=== PATIENT | male | born 1980 ===

== ENCOUNTER 2020-10-21 15:11 | Emergency (ER) | payer SELFPAY ==
[2020-10-21 15:25] VITALS: BP 117/78
--- NOTE | 2020-10-21 15:29 | Emergency Department Report ---
Blank Doc - Documentation Documentation: 40-year-old male that presents with SOB and right sided chest pain with radiat ion to right back. 1- This is a initial triage assessment/medical screening only. Full assessment and work-up will be completed once the patient is in proper hospital gown, ED bed and in a private room setting. This initial assessment/diagnostic orders/clinical plan/ treatment(s) is/are subject to change based on pt's health status, clinical progression and re-assessment by fellow clinical providers in the ED. Further treatment and workup at subsequent clinical providers discretion. Patient/guardians urged not to elope from ED as their condition may be serious if not clinically assessed and managed. 2-cardiac workup
--- NOTE | 2020-10-21 15:50 | XRay Report ---
CHEST 2 VIEWS INDICATION / CLINICAL INFORMATION: Chest Pain. FINDINGS: SUPPORT DEVICES: None. HEART / MEDIASTINUM: No significant abnormality. LUNGS / PLEURA: Small right pleural effusion. Streaky opacities within the right lower lung are prese nt and may represent atelectasis versus pneumonitis. The left lung is grossly clear. Signer Name: Bebo Banda MD Signed: 10/21/2020 3:45 PM Workstation Name: [id number]
[2020-10-21 15:51] LABS: Basophils % (Auto) 0.4 % (0.0-1.8); Eosinophils % (Auto) 0.6 % (0.0-4.3); Hematocrit 38.6 % (35.5-45.6); Hemoglobin 13.1 gm/dl (11.8-15.2); Lymphocytes # (Auto) 1.4 K/mm3 (1.2-5.4); Lymphocytes % (Auto) 17.8 % (13.4-35.0); Mean Corpuscular HGB Conc 34 % (32-34); Mean Corpuscular Volume 86 fl (84-94); Monocytes # (Auto) 0.5 K/mm3 (0.0-0.8); Platelet Count 296 K/mm3 (140-440); Red Cell Distribution Width 16.8 % (13.2-15.2)
[2020-10-21 16:08] LABS: INR 1.23 (0.87-1.13); Partial Thromboplastin Time 33.1 Sec. (24.2-36.6)
[2020-10-21 16:16] LABS: Alanine Aminotransferase 16 units/L (7-56); Albumin 4.2 g/dL (3.9-5); BUN/Creatinine Ratio 12; Blood Urea Nitrogen 14 mg/dL (9-20); Hemolysis Index 3
[2020-10-21] MEDS ORDERED: IBUPROFEN 600 MG TAB PO ONE (20:41)
[2020-10-21] MEDS ORDERED: levoFLOXacin 750 MG TAB PO ONE (20:41)
[2020-10-21] MEDS ORDERED: predniSONE 20 MG TAB PO ONE (20:41)
[2020-10-21] MEDS ORDERED: BENZONATATE 100 MG CAP PO ONE (20:41)
--- NOTE | 2020-10-21 20:47 | Emergency Department Report ---
- General Chief Complaint: Upper Respiratory Infection Stated Complaint: CHEST/BACK PAIN RIGHT SIDE Time Seen by Provider: 10/21/20 15:24 Source: patient Mode of arrival: Ambulatory Limitations: No Limitations - History of Present Illness Initial Comments: Patient is a 40-year-old -[place] male with a history of current pneumonia who presents to the ED with complaint of acute onset persistent right- sided chest wall pain, persistent dry cough, shortness of breath and nasal and sinus congestion for the last 4 days. Patient states that the pain in his right chest wall is worse with movement or deep inhalation and cough. Patient denies dizziness, syncope, fever, chills, sore throat, headache, traumatic injury or fall, hemoptysis, palpitations, abdominal pain, nausea and vomiting. MD Complaint: cough, nasal congestion, other (Right-sided chest wall pain; shortness of breath) -: Sudden, days(s) (4) Severity: severe Severity scale (0 -10): 7 Quality: sharp, aching Consistency: constant Improves With: nothing Worsens With: activity, deep breaths, changing head position Associated Symptoms: denies other symptoms, nasal congestion, cough, chest pain (Right sided chest pain), shortness of breath. denies: fever, chills, myalgias, diaphoresis, headache, rhinorrhea, sore throat, abdominal pain, nausea, vomiting, diarrhea, dysuria, rash, confusion, right sweats, weight loss, epistaxis, hoarseness, ear pain Treatments Prior to Arrival: none - Related Data Previous Rx's Medication Instructions Recorded Last Taken Type Albuterol Sulfate [Proventil Hfa] 1 - 2 puff IH Q6H PRN #1 hfa.aer.ad 10/21/20 Unknown Rx Benzonatate [Tessalon Perles] 100 mg PO Q8HR #30 capsule 10/21/20 Unknown Rx Ibuprofen [Motrin] 600 mg PO Q8H PRN #30 tablet 10/21/20 Unknown Rx levoFLOXacin [Levaquin] 750 mg PO QDAY #7 tablet 10/21/20 Unknown Rx methylPREDNISolone [Medrol 4MG 4 mg PO DAILY #21 tab.ds.pk 10/21/20 Unknown Rx DOSEPAK (21 tabs)] Allergies Allergy/AdvReac Type Severity Reaction Status Date / Time No Known Allergies Allergy Verified 10/21/20 21:52 ED Review of Systems ROS: Stated complaint: CHEST/BACK PAIN RIGHT SIDE Other details as noted in HPI Constitutional: denies: chills, fever Eyes: denies: eye pain, eye discharge, vision change ENT: congestion. denies: ear pain, throat pain Respiratory: cough, shortness of breath. denies: wheezing Cardiovascular: chest pain (Right lateral chest wall pain). denies: palpitations Endocrine: no symptoms reported Gastrointestinal: denies: abdominal pain, nausea, vomiting, diarrhea Genitourinary: denies: urgency, dysuria Musculoskeletal: denies: back pain, joint swelling, arthralgia Skin: denies: rash, lesions Neurological: denies: headache, weakness, paresthesias Psychiatric: denies: anxiety, depression Hematological/Lymphatic: denies: easy bleeding, easy bruising ED Past Medical Hx - Past Medical History Previous Medical History?: Yes Additional medical history: pneumonia - Surgical History Past Surgical History?: No - Medications Home Medications: Home Medications Medication Instructions Recorded Confirmed Last Taken Type Albuterol Sulfate [Proventil Hfa] 1 - 2 puff IH Q6H PRN #1 hfa.aer.ad 10/21/20 Unknown Rx Benzonatate [Tessalon Perles] 100 mg PO Q8HR #30 capsule 10/21/20 Unknown Rx Ibuprofen [Motrin] 600 mg PO Q8H PRN #30 tablet 10/21/20 Unknown Rx levoFLOXacin [Levaquin] 750 mg PO QDAY #7 tablet 10/21/20 Unknown Rx methylPREDNISolone [Medrol 4MG 4 mg PO DAILY #21 tab.ds.pk 10/21/20 Unknown Rx DOSEPAK (21 tabs)] ED Physical Exam - General Limitations: No Limitations General appearance: alert, in no apparent distress - Head Head exam: Present: atraumatic, normocephalic, normal inspection - Eye Eye exam: Present: normal appearance, PERRL, EOMI Pupils: Present: normal accommodation - ENT ENT exam: Present: normal exam, normal orophraynx, mucous membranes moist, TM's normal bilaterally, normal external ear exam - Neck Neck exam: Present: normal inspection, full ROM - Respiratory Respiratory exam: Present: normal lung sounds bilaterally, chest wall tenderness (Palpable reproducible right lateral chest wall tenderness). Absent: respiratory distress, wheezes, rales, rhonchi, stridor, accessory muscle use, decreased breath sounds, prolonged expiratory - Cardiovascular Cardiovascular Exam: Present: normal rhythm, tachycardia, normal heart sounds. Absent: systolic murmur, diastolic murmur, rubs, gallop - GI/Abdominal GI/Abdominal exam: Present: soft, normal bowel sounds. Absent: distended, tenderness, guarding - Extremities Exam Extremities exam: Present: normal inspection, full ROM, normal capillary refill - Back Exam Back exam: Present: normal inspection, full ROM. Absent: tenderness, CVA t enderness (R), CVA tenderness (L), muscle spasm, paraspinal tenderness, vertebral tenderness - Neurological Exam Neurological exam: Present: alert, oriented X3, CN II-XII intact, normal gait, reflexes normal - Psychiatric Psychiatric exam: Present: normal affect, normal mood - Skin Skin exam: Present: warm, dry, intact, normal color. Absent: rash ED Course Vital Signs 10/21/20 10/21/20 15:23 22:30 Temperature 98.4 F Pulse Rate 104 H Respiratory 20 18 Rate Blood Pressure 117/78 [Right] O2 Sat by Pulse 99 98 Oximetry ED Medical Decision Making - Lab Data Result diagrams: 10/21/20 15:29 10/21/20 15:29 - Radiology Data Radiology results: report reviewed, [place] [address] XRay Report Signed Patient: SONALI JORDAN MR#: [id number] : 1980 Acct:[id number] Age/Sex: 40 / M ADM Date: 10/21/20 Loc: ED Attending Dr: Ordering Physician: TRAY GUERRA NP Date of Service: 10/21/20 Procedure(s): XR chest routine 2V Accession Number(s): [id number] cc: TRAY GUERRA NP Fluoro Time In Minutes: CHEST 2 VIEWS INDICATION / CLINICAL INFORMATION: Chest Pain. FINDINGS: SUPPORT DEVICES: None. HEART / MEDIASTINUM: No significant abnormality. LUNGS / PLEURA: Small right pleural effusion. Streaky opacities within the right lower lung are present and may represent atelectasis versus pneumonitis. The left lung is grossly clear. Signer Name: Bebo Banda MD Signed: 10/21/2020 3:45 PM Workstation Name: [id number] Transcribed By: Dictated By: Bebo Banda MD Electronically Authenticated By: Bebo Banda MD Signed Date/Time: 10/21/201544 DD/ 44 TD/TT: - Medical Decision Making This is a 40-year-old -[place] male with a history of current pneumonia who presents to the ED with complaint of acute onset persistent right-sided chest wall pain, persistent dry cough, shortness of breath and nasal and sinus congestion for the last 4 days. Patient states that the pain in his right chest wall is worse with movement or deep inhalation and cough. In the ED, patient is alert and oriented x3 and is not in any distress but appears to be in pain, slightly tachycardic and afebrile. Lab test results were reviewed and are all nonactionable. Chest x-ray showed small right pleural effusion. Streaky opacities within the right lower lung are present and may represent atelectasis versus pneumonitis. The left lung is grossly clear. Patient was treated for zabala spected community-acquired pneumonia of the right lower lobe, also treated for pain in the ED. Patient is hemodynamically stable with oxygen saturation of 99% in room air. Patient was discharged home on pain medications, antibiotics, albuterol inhaler and cough medications and was advised to follow-up with his primary care physician in 5 to 7 days for reevaluation. Patient was advised return to the ED immediately if symptoms get worse. - Differential Diagnosis Pneumonia; ACS; bronchitis; URI; COVID-19; Critical care attestation.: If time is entered above; I have spent that time in minutes in the direct care of this critically ill patient, excluding procedure time. ED Disposition Clinical Impression: Shortness of breath, Right-sided chest wall pain Community acquired pneumonia Qualifiers: Laterality: right Lung location: lower lobe of lung Qualified Code(s): J18.9 - Pneumonia, unspecified organism Disposition: DC-01 TO HOME OR SELFCARE Is pt being admited?: No Does the pt Need Aspirin: No Condition: Stable Instructions: Shortness of Breath, Adult, [id number], Cough, Adult, [id number], Chest Wall Pain, [id number], Nonspecific Chest Pain, Adult, [id number], Community-Acquired Pneumonia, Adult, [id number], Bacterial Pneumonia (ED) Additional Instructions: All lab test results were reviewed and are all nonactionable. Chest x-ray showed small right lower lobe pleural effusion and suspected right lower lobe infiltrates consistent with pneumonia. Therefore take medications with food, drink plenty of fluids and follow-up with your primary care physician in 5 to 7 days for reevaluation. Return to the ED immediately if symptoms get worse. Prescriptions: levoFLOXacin [Levaquin] 750 mg PO QDAY #7 tablet methylPREDNISolone [Medrol 4MG DOSEPAK (21 tabs)] 4 mg PO DAILY #21 tab.ds.pk Ibuprofen [Motrin] 600 mg PO Q8H PRN #30 tablet PRN Reason: Pain Albuterol Sulfate [Proventil Hfa] 1 - 2 puff IH Q6H PRN #1 hfa.aer.ad PRN Reason: Shortness Of Breath Benzonatate [Tessalon Perles] 100 mg PO Q8HR #30 capsule Referrals: [facility] [Provider Group] - 3-5 Days Forms: Work/School Release Form(ED) Time of Disposition: 20:46 Print Language: TONGAN
== END 2020-10-21 22:30 | disposition home or self-care (01) ==
LOC: ED 15:11
DX: J18.9 Pneumonia, unspecified organism (principal); R06.02 Shortness of breath; R07.89 Other chest pain; Z79.899 Other long term (current) drug therapy
CPT/HCPCS: 36415; 71046; 80053; 83735; 84484; 85025; 85610; 85730; 99283; J7512